=== PATIENT | female | born 1990 | race Hispanic/Latino ===

== ENCOUNTER 2018-09-30 18:15 | Emergency (ER) | payer MEDICAID ==
[2018-09-30] MEDS ORDERED: ACETAMINOPHEN EXTRA STRENGTH 500 MG TABLET ONE (19:14)
[2018-09-30] MEDS ORDERED: CEPHALEXIN 500 MG CAPSULE ONE (19:14)
[2018-09-30] MEDS ORDERED: TETANUS/DIPHTHERIA TOXOID [ADULT] 0.5 ML VIAL IM ONE (19:14)
== END 2018-09-30 19:27 | disposition home or self-care (01) ==
LOC: EDH 18:15
DX: S01.01XA Laceration without foreign body of scalp, initial encounter (principal); S61.305A Unspecified open wound of left ring finger with damage to nail, initial encounter; S90.122A Contusion of left lesser toe(s) without damage to nail, initial encounter; F41.9 Anxiety disorder, unspecified; W18.39XA Other fall on same level, initial encounter; Y93.89 Activity, other specified; Y92.89 Other specified places as the place of occurrence of the external cause; Y99.8 Other external cause status
CPT/HCPCS: 12032; 90471; 90714

== ENCOUNTER 2018-10-18 17:38 | Emergency (ER) | payer MEDICAID ==
[2018-10-18 18:10] LABS: BILIRUBIN,URINE Negative (NEGATIVE); COLOR,URINE Yellow (YELLOW); GLUCOSE, URINE (UA) Negative (NEGATIVE); HCG,QUAL RESULT POSITIVE (NEGATIVE); KETONES,URINE Trace mg/dL (NEGATIVE); LEUKOCYTE ESTERASE ,URINE Trace (NEGATIVE); NITRATE,URINE Negative (NEGATIVE); OCCULT BLOOD,URINE Negative (NEGATIVE); PH,URINE 5.5 (5.0-8.0); PROTEIN,URINE Negative (NEGATIVE)
[2018-10-18 18:11] LABS: APPEARANCE,URINE SLIGHTLY CLOUDY (CLEAR)
[2018-10-18 18:29] LABS: BACTERIA,URINE Few /HPF (None Seen); MUCUS,URINE Few LPF (None Seen); RBC,URINE 0-1 /HPF (0-1); SQUAMOUS EPITHELIAL CELL,UR Few /HPF (0-2)
== END 2018-10-18 19:31 | disposition home or self-care (01) ==
LOC: EDH 17:38
DX: S51.831A Puncture wound without foreign body of right forearm, initial encounter (principal); S91.331A Puncture wound without foreign body, right foot, initial encounter; S30.811A Abrasion of abdominal wall, initial encounter; Z32.01 Encounter for pregnancy test, result positive; F41.9 Anxiety disorder, unspecified; W54.0XXA Bitten by dog, initial encounter; Y93.89 Activity, other specified; Y92.89 Other specified places as the place of occurrence of the external cause; Y99.8 Other external cause status
CPT/HCPCS: 73090; 73630; 81001; 81025